=== PATIENT | female | born 1975 | race Caucasian/White ===

== ENCOUNTER 2020-12-14 12:02 | Emergency (ER) | payer BC ==
[~2020-12-14] VITALS: Ht 170.2 cm; Wt 80.0 kg
[2020-12-14 12:02] VITALS: BP 132/65
--- NOTE | 2020-12-14 12:34 | PHYS DOC ---
General Adult EDM: Chief Complaint: CAST CHECK HPI: HPI: Patient is a 45-year-old female who presents to have her cast rewrapped. Patient had wrist surgery on and states that the cast has moved down and she needs it rewrapped so it is back up towards her elbow. Patient is reporting some mild discomfort and has been taking hydrocodone at home. Patient denies any numbness or tingling in her fingers ,sensations intact. Denies medical history. (ANGELIC SHANKS APRN) Review of Systems: Review of Systems: ROS At least 10 ROS systems have been reviewed and are negative except as documented in the HPI. General: Negative except as outlined in HPI above. Skin: Negative except as outlined in HPI above. HEENT: Negative except as outlined in HPI above. Neck: Negative except as outlined in HPI above. Respiratory: Negative except as outlined in HPI above.. Cardiovascular: Negative except as outlined in HPI above. Abdomen: Negative except as outlined in HPI above. : Negative except as outlined in HPI above. Back/MSK: Negative except as outlined in HPI above. Neuro: Negative except as outlined in HPI above. Psych: Negative except as outlined in HPI above. (ANGELIC SHANKS SHANK PIECE TACKER) Physical Exam: PE: Constitutional: Well developed, well nourished, no acute distress, non-toxic appearance. [] HENT: Normocephalic, atraumatic, bilateral external ears normal, oropharynx moist, no oral exudates, nose normal. [] Eyes: PERRLA, EOMI, conjunctiva normal, no discharge. [] Neck: Normal range of motion, no tenderness, supple, no stridor. [] Cardiovascular:Heart rate regular rhythm, no murmur [] Lungs & Thorax: Bilateral breath sounds clear to auscultation [] Abdomen: Bowel sounds normal, soft, no tenderness, no masses, no pulsatile masses. [] Skin: Warm, dry, no erythema, no rash. [] Back: No tenderness, no CVA tenderness. [] Extremities: No tenderness, no cyanosis, left arm tenderness, ROM intact, no edema. [] Neurologic: Alert and oriented X 3, normal motor function, normal sensory function, no focal deficits noted. [] Psychologic: Affect normal, judgement normal, mood normal. [] (ANGELIC SHANKS SHANK PIECE TACKER) EKG: EKG: [] (ANGELIC SHANKS APRN) Radiology/Procedures: Radiology/Procedures: [] (ANGELIC SHANKS APRN) Heart Score: C/O Chest Pain: No Risk Factors: Risk Factors: DM, Current or recent (<one month) smoker, HTN, HLP, family history of CAD, obesity. Risk Scores: Score 0 - 3: 2.5% MACE over next 6 weeks - Discharge Home Score 4 - 6: 20.3% MACE over next 6 weeks - Admit for Clinical Observation Score 7 - 10: 72.7% MACE over next 6 weeks - Early Invasive Strategies (ANGELIC SHANKS APRN) Course & Med Decision Making: Course & Med Decision Making Pertinent Labs and Imaging studies reviewed. (See chart for details) [] 45-year-old female presents after her surgery to have her cast rewrapped. Patient is reporting that the cast has moved and is causing discomfort. Advised patient we would rewrap her cast. Sensations intact. Patient should continue taking hydrocodone as prescribed by her surgeon. Discussed return precautions. Patient understands discharge instructions. (ANGELIC SHANKS APRN) Course & Med Decision Making I was the Attending physician on the above date of service of this patient. This patient was evaluated, examined, treated, and dispositioned from the emergency department by the mid-level practitioner. Although I was working at the time , no assistance was requested. Electronically signed, Swathi Tanner DO (SWATHI TANNER DO) Андрей Disclaimer: Андрей Disclaimer: This electronic medical record was generated, in whole or in part, using a voice recognition dictation system. (ANGELIC SHANKS APRN) Departure Departure: Impression: Primary Impression: Cast discomfort Disposition: 01 HOME / SELF CARE / HOMELESS Condition: STABLE Referrals: PCP,NO (PCP) Patient Instructions: Cast Care-Brief Additional Instructions: You were seen in the emergency room for cast of comfort. Your cast was rewrapped. Continue taking your pain medication as prescribed by your physician. Return to the emergency room if you have worsening symptoms or concerns. Otherwise follow-up with your PCP. EMERGENCY DEPARTMENT GENERAL DISCHARGE INSTRUCTIONS Thank you for coming to [facility] (ED) today and trusting us with you care. We trust that you had a positivie experience in our Emergency Department. If you wish to speak to the department management, you may call the director at [phone]. YOUR FOLLOW UP INSTRUCTIONS ARE FOLLOWS: 1. Do you have a private Doctor? If you do not have a private doctor, please ask for a resource list of physicians or clinics that may be able to assist you with follow up care. 2. The Emergency Physician has interpreted your x-rays. The X-Ray specialist will also review them. If there is a change in the findings, you will be notified in 48 hours when at all possible. 3. A lab test or culture has been done, your results will be reviewed and you will be notified if you need a change in treatment. ADDITIONAL INSTRUCTIONS AND INFORMATION: 1. Your care today has been supervised by a physician who is specially trained in emergency care. Many problems require more than one evaluation for a complete diagnosis and treatment. We recommend that you schedule your follow up appointment as recommended to ensure complete treatment of you illness or injury. If you are unable to obtain follow up care and continue to have a problem, or if your condition worsens, we recommend that you return to the ED. 2. We are not able to safely determine your condition over the phone nor are we able to give sound medical advice over the phone. For these safety reasons, if you call for medical advice we will ask you to come to the ED for further evaluation. 3. If you have any questions regarding these discharge instructions please call the ED at [phone]. SAFETY INFORMATION: In the interest of safety, wellness, and injury prevention; we encourage you to wear your sealbelt, if you smoke; quite smoking, and we encourage family to use a protective helmet for bicycling and other sporting events that present an increased risk for head injury. IF YOUR SYMPTOMS WORSEN OR NEW SYMPTOMS DEVELOP, OR YOU HAVE CONCERNS ABOUT YOUR CONDITION; OR IF YOUR CONDITION WORSENS WHILE YOU ARE WAITING FOR YOUR FOLLOW UP APPOINTMENT; EITHER CONTACT YOUR PRIMARY CARE DOCTOR, THE PHYSICIAN WHOSE NAME AND NUMBER YOU WERE GIVEN, OR RETURN TO THE ED IMMEDIATELY. ANGELIC SHANKS APRN Dec 14, 2020 12:34 SWATHI TANNER DO Dec 18, 2020 00:30
== END 2020-12-14 12:46 | disposition home or self-care (01) ==
LOC: ER 12:02
DX: Z46.89 Encounter for fitting and adjustment of other specified devices (principal)
CPT/HCPCS: 99282

== ENCOUNTER → 2020-12-30 | Outpatient (CLI) | payer BC ==
[2020-12-14 12:02] VITALS: BP 132/65
--- NOTE | 2020-12-30 14:11 | RAD ---
EXAM: Left wrist, 4 views. HISTORY: Pain. COMPARISON: 12/09/2020. FINDINGS: 4 views of the left wrist are obtained. There is internal fixation of a distal radial metap hyseal fracture with a plate and multiple screws. There is a displaced ulnar styloid fracture. There is external casting material. IMPRESSION: 1. Internal fixation of a distal radial metaphyseal fracture. There is improved alignment compared to the prior study. No interval healing is seen. 2. Displaced ulnar styloid fracture. Electronically signed by: Lindsay Young MD (12/30/2020 2:08 PM) [id number]
== END ==
LOC: RAD 13:41
PROVIDERS: ATTEND Physician Assistant
DX: S52.612A Displaced fracture of left ulna styloid process, initial encounter for closed fracture (principal); X58.XXXA Exposure to other specified factors, initial encounter; Y93.89 Activity, other specified; Y92.89 Other specified places as the place of occurrence of the external cause; Y99.8 Other external cause status; Z98.890 Other specified postprocedural states
CPT/HCPCS: 73110

== ENCOUNTER → 2021-01-20 | Outpatient (CLI) | payer BC ==
--- NOTE | 2021-01-20 21:00 | RAD ---
EXAM: 3 views of the left wrist DATE: 01/20/2021 1:43 PM INDICATION: Reason: S/P ORIF LEFT WRIST / Spl. Instructions: / History: COMPARISON: 12/30/2020 FINDINGS/ IMPRESSION: 1. Distal radial fracture post reduction and fixation with volar screw plate, stable in alignment wi thout definite hardware complication. Callus formation suggesting progressive healing. 2. Ulnar styloid avulsion fracture is also stable in alignment. Electronically signed by: Brown Galarza MD (01/20/2021 8:58 PM) DIANE
== END ==
LOC: RAD 13:30
PROVIDERS: ATTEND Physician Assistant
DX: S52.502A Unspecified fracture of the lower end of left radius, initial encounter for closed fracture (principal); S52.612A Displaced fracture of left ulna styloid process, initial encounter for closed fracture; X58.XXXA Exposure to other specified factors, initial encounter; Y93.89 Activity, other specified; Y92.89 Other specified places as the place of occurrence of the external cause; Y99.8 Other external cause status
CPT/HCPCS: 73110

== ENCOUNTER → 2021-03-06 | Outpatient (CLI) | payer OTHER ==
--- NOTE | 2021-03-06 15:34 | RAD ---
EXAM: Left wrist, 3 views. HISTORY: Fracture. COMPARISON: 01/20/2021 FINDINGS: 3 views of the left hand are obtained. There is internal fixation of a distal radial metaph yseal fracture. There has been no significant interval healing along the fracture line. 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 There is a displaced ulnar styloid fracture. IMPRESSION: 1. Internal fixation of a distal radial metaphyseal fracture. No significant interval healing. 2. Unchanged displaced ulnar styloid fracture. 3. 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 Electronically signed by: Lindsay Young MD (03/06/2021 3:32 PM) [id number]
== END ==
LOC: RAD 14:51
PROVIDERS: ATTEND Physician Assistant
DX: S52.612D Displaced fracture of left ulna styloid process, subsequent encounter for closed fracture with routine healing (principal); S52.572D Other intraarticular fracture of lower end of left radius, subsequent encounter for closed fracture with routine healing; X58.XXXD Exposure to other specified factors, subsequent encounter; Z96.632 Presence of left artificial wrist joint
CPT/HCPCS: 73110